=== PATIENT | male | born 1995 | race African-American/Black ===

== ENCOUNTER 2018-02-21 23:12 | Emergency (ER) | payer OTHER, SELFPAY ==
[2018-02-21 23:31] VITALS: BP 148/80; PULSE 111; RESP 20; TEMP 37.2; O2SAT 98; BMI 22.7
--- NOTE | 2018-02-21 23:35 | DI.RAD.S_ITS ---
PROCEDURE: XR CHEST 2V INDICATIONS: 22 year-old male with cough and congestion. TECHNIQUE: 2 views of the chest were acquired. COMPARISON: None. FINDINGS: Surgical changes and devices: None. Lungs and pleura: No pleural effusions or pneumothorax. Lungs are clear. Mediastinum: Mediastinal contours are normal. Heart size is normal. Bones and chest wall: No suspicious bony abnormalities. Soft tissues appear unremarkable. IMPRESSION: No acute cardiopulmonary disease. Dictated by: Rosendo Hinkle M.D. on 02/22/2018 at 7:54 Approved by: Rosendo Hinkle M.D. on 02/22/2018 at 7:55
--- NOTE | 2018-02-22 00:51 | ED_ITS ---
HPI - URI/Sore Throat General Chief Complaint: Upper Respiratory Symptoms Stated Complaint: THINKS HE HAS SINUS INFECTION Time Seen by Provider: 02/22/18 00:47 Source: patient Mode of arrival: ambulatory Limitations: no limitations History of Present Illness HPI Narrative: Patient is a 22-year-old male who presents with upper respiratory like symptoms ongoing for the last week. He has had nasal congestion and productive cough he has also had some shortness of breath. He thinks he had a fever a couple of the days. But he is afebrile here in the ED and today. He thinks is a little bit worse today. 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 MD Complaint: cough and nasal congestion Onset (ago): week(s) (1) Related Data Previous Rx's Medication Instructions Recorded azithromycin See Label Instructions .ROUTE 02/22/18 .COMPLEX #6 tab Review of Systems Constitutional Denies chills, Denies fever(s), Denies lethargy and Denies weakness ENT Ears, Nose, Mouth, and Throat: Reports system reviewed and no additional complaints, except as docu Cardiovascular Denies chest pain, Denies diaphoresis and Reports dyspnea Respiratory Reports cough, Denies hemoptysis, Reports excessive phlegm production, Denies pain on inspiration, Denies pain with cough, Reports dyspnea and Denies wheezing Gastrointestinal Gastrointestinal: Denies abdominal pain, Denies change in bowel habits, Denies diarrhea, Denies nausea and Denies vomiting Integumentary/Breasts Denies pruritus, Denies erythema, Denies rash and Denies wounds Neurologic Denies weakness Allergic/Immunologic Denies wheezing ON LICENSE OF [facility] Social History Smoking Status: Current every day smoker Exam Initial Vital Signs Initial Vital Signs: Vital Signs Temperature 98.9 F 02/21/18 23:31 Pulse Rate 111 H 02/21/18 23:31 Respiratory Rate 20 02/21/18 23:31 Blood Pressure 148/80 H 02/21/18 23:31 Pulse Oximetry 98 02/21/18 23:31 GENERAL: Well-appearing, well-nourished and in no acute distress. HEENT: Head atraumatic,EOMI, pupils reactive, face symmetric, moist mucous membranes CARDIOVASCULAR: Regular rate and rhythm without murmurs, rubs or gallops. RESPIRATORY: No respiratory distress, slight or expiratory wheezes ABDOMEN: Soft, nontender. Normoactive bowel sounds all 4 quadrants. No guarding or rebound. EXTREMITIES: Normal range of motion, no clubbing or edema. Neurovascularly intact NEUROLOGICAL: Alert and oriented x4.Normal gait and speech. SKIN: Warm, dry, no laceration, no petechiae, no rashes or lesions. Course Orders Ordered: ED Orders 02/21/18 23:35 Chest [XR chest 2V] Stat Discontinued Medications Albuterol (Ventolin Hfa Prepack) 1 box MISC SEEINSTR ONE Stop: 02/22/18 00:48 Last Admin: 02/22/18 00:56 Dose: 1 box Vital Signs - 8 hr 02/21/18 23:31 02/22/18 01:03 Temperature 98.9 F Pulse Rate 111 H 95 H Respiratory Rate 20 Blood Pressure 148/80 H 135/82 H Pulse Oximetry 98 97 Discharge Plan Departure Patient Disposition: Home, Self-Care Clinical Impression: Bronchitis Discharge Date/Time: 02/22/18 01:04 Interventions: ED Discharge Assessment Last Done: 02/22/18 01:03 Instructions: Acute Bronchitis Activity Restrictions/Additional Instructions: *You have been diagnosed with bronchitis *What to do: Rest, fever control *Continue to take medications as directed Z-Steffen, take as directed -albuterol with a spacer the 1-2 puffs every 4 hr if needed for coughing episodes or difficulty breathing *Follow up with your primary care provider in 2-3 days *Return to ER if you should have any new, worsening or concerning symptoms Prescriptions: New azithromycin 250 mg tablet See Label Instructions .ROUTE .COMPLEX Qty: 6 RF: 0 Referrals: [facility] [Outside] [facility] [Outside] [facility] [Outside] Stand Alone Forms: Work/School Restrictions
[2018-02-22] MEDS: ALBUTEROL HFA PREPACK 1 BOX MISC (00:56)
[2018-02-22 01:03] VITALS: BP 135/82; PULSE 95; O2SAT 97
== END 2018-02-22 01:04 | disposition home or self-care (01) ==
PROVIDERS: Emergency Provider Emergency Medicine
DX: J40 Bronchitis, not specified as acute or chronic (principal)
CPT/HCPCS: 71046; 99282; 99283

== ENCOUNTER 2019-12-23 06:28 | Emergency (ER) | payer SELFPAY ==
[2019-12-23] VITALS (11 sets, daily range): BP systolic 99–131; BP diastolic 56–59; PULSE 59–96; RESP 13–18; TEMP 36.4; O2SAT 97–100
--- NOTE | 2019-12-23 06:44 | DI.CT.S_ITS ---
PROCEDURE: CT HEAD/BRAIN WO CON INDICATIONS: head injury, mental status change TECHNIQUE: Noncontrast 4.5 mm thick angled axial sections acquired from the foramen magnum to the vertex, with coronal and sagittal reformats. For radiation dose reduction, the following was used: automated exposure control, adjustment of mA and/or kV according to patient size. COMPARISON: None. FINDINGS: Image quality: Excellent. CSF spaces: Basal cisterns are patent. No extra-axial fluid collections. Ventricles are normal in size and shape. Brain: No midline shift. No intracranial masses or hemorrhage. Franco-white matter interface is normal. Skull and face: Calvarium and visualized facial bones are intact, without suspicious lesions. Sinuses: Visualized sinuses and mastoids are clear. IMPRESSION: No acute intracranial abnormalities. No skull fractures. No significant discrepancy with the shift mechanic radiology preliminary report. Dictated by: Xochilt Whitmore M.D. on 12/23/2019 at 8:01 Approved by: Xochilt Whitmore M.D. on 12/23/2019 at 8:40
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
[2019-12-23 06:57] LABS: Add Manual Diff / Slide Review NO; Basophils Absolute Auto 100 /uL (0-100); Basophils Percent Auto 1.4 % (0-2); Eosinophils Absolute Auto 100 /uL (0-450); Eosinophils Percent Auto 0.9 % (2-4); Hematocrit 37.3 % (41-53); Hemoglobin 13.1 g/dL (13.5-17.5); Lymphocytes Absolute Auto 2700 /uL (1100-4500); Lymphocytes Percent Auto 29.7 % (25-40); Mean Corpuscular HGB Conc 35.2 % (30-36); Mean Corpuscular Hemoglobin 30.8 PG (26-34); Mean Corpuscular Volume 87.4 fL (80-100); Monocytes Absolute Auto 700 /uL (0-900); Monocytes Percent Auto 7.6 % (3-14); Neutrophils Absolute Auto 5500 /uL (1500-7000); Neutrophils Percent Auto 60.4 % (50-75); Platelet Count 227 X10^3/uL (150-400); Red Blood Cell Count 4.27 X10^6/uL (4.5-5.9); Red Cell Distribution Width 12.4 % (11.6-14.8); White Blood Cell Count 9.1 X10^3/uL (4.5-11.0)
[2019-12-23 07:07] LABS: Ethanol (ETOH) < 10 mg/dL
[2019-12-23 07:08] LABS: Alanine Aminotransferase 27 IU/L (<50); Albumin 4.4 g/dL (3.5-5.0); Albumin Globulin Ratio 1.5 (1.0-2.8); Alkaline Phosphatase 79 U/L (38-126); Aspartate Aminotransferase 64 IU/L (17-59); BUN Creatinine Ratio 20.9 (6-22); Bilirubin Total 2.2 mg/dL (0.2-1.3); Blood Urea Nitrogen 14 mg/dL (9-20); Calcium 9.2 mg/dL (8.4-10.2); Carbon Dioxide 24 mmol/L (22-32); Chloride 104 mmol/L (98-107); Estimated Glomerular Filt Rate > 60.0 mL/min (>60); Globulin 2.9 g/dL (1.7-4.1); Glucose 89 mg/dL (70-100); HEMOLYSIS < 15 (0-50); Lactate (Lactic Acid) 0.9 mmol/L (0.7-2.1); Potassium 3.3 mmol/L (3.4-5.1); Sodium 140 mmol/L (137-145); Total Protein 7.3 g/dL (6.3-8.2)
[2019-12-23 07:10] LABS: UR Morphine/Opiate cutoff 300 Negative (Negative); Ur Creatinine Normal (Normal); Ur Specific Gravity Normal (Normal); Urine Amphetamines Negative (Negative); Urine Barbiturates Negative (Negative); Urine Benzodiazepines Negative (Negative); Urine Cocaine Negative (Negative); Urine MDMA Negative (Negative); Urine Methadone Negative (Negative); Urine Methamphetamines Negative (Negative); Urine Oxycodone Negative (Negative); Urine Phencyclidine Negative (Negative); Urine Tetrahydrocannabinol Positive (Negative); Urine Tricyclic Antidepressant Negative (Negative); Urine pH Normal (Normal)
[2019-12-23] MEDS: NALOXONE 0.4 MG/ML VIAL 0.2 MG IV (07:22)
[2019-12-23] MEDS: SODIUM CHLORIDE 0.9% 1,000 ML 1000 ML IV (08:11)
--- NOTE | 2019-12-23 08:28 | PC.NURSE ---
pt is drowsy, closes eyes to rest, does respond when stimulated.
[2019-12-23 09:11] LABS: Bacteria Urine None Seen
[2019-12-23 09:13] LABS: Appearance Urine UA CLEAR; Bilirubin Urine UA NEGATIVE (NEGATIVE); Color Urine UA YELLOW; Glucose Urine UA NEGATIVE (Negative); Ketones Urine UA 1+ (NEGATIVE); Leukocyte Esterase Urine UA NEGATIVE (NEGATIVE); Nitrite Urine UA NEGATIVE (Negative); Occult Blood Urine UA TRACE-LYSED (Negative); Protein Urine UA NEGATIVE (Negative); Urobilinogen Urine UA 0.2 E.U./dL (0.2)
[2019-12-23 09:20] LABS: Culture Indicated Urine Cult Not Indicated; RBC Urine 0-1/HPF (0-5/HPF); WBC Urine 0-1/HPF (0-5/HPF)
== END 2019-12-23 15:48 | disposition home or self-care (01) ==
PROVIDERS: Emergency Medicine; Emergency Provider Emergency Medicine
DX: R41.82 Altered mental status, unspecified (principal); R47.81 Slurred speech
CPT/HCPCS: 36415; 70450; 80053; 80305; 80320; 81001; 83605; 85025; 87040; 96361; 96374; 99284; J2310